=== PATIENT | male | born 1940 | race Caucasian/White ===

== ENCOUNTER 2023-05-05 09:27 | Inpatient (IN) | payer MEDICARE, OTHER ==
[~2023-05-05] VITALS: Ht 175.3 cm; Wt 95.5 kg
[2023-05-05] MEDS ORDERED: normal saline 1000ML IV soln IVB ONE (10:15)
[2023-05-05] MEDS ORDERED: pantoprazole 40mg IV 80 MG in normal saline 100ml IV soln 100 ML IV ONE (10:15)
[2023-05-05] MEDS ORDERED: pantoprazole 40 MG vial IV ONE (10:30)
[2023-05-05 10:51] LABS: BASOPHILS % (AUTO) 0.3 % (0-1); EOSINOPHILS # (AUTO) 0.1 X10'3 (0-0.9); EOSINOPHILS % (AUTO) 0.8 % (0-6); HEMATOCRIT 43.3 % (42.0-52.0); HEMOGLOBIN 14.9 g/dl (14.0-17.9); LYMPHOCYTES # (AUTO) 2.1 X10'3 (1.1-4.8); LYMPHOCYTES % (AUTO) 21.2 % (21-51); MEAN CORPUSCULAR HEMOGLOBIN 32.7 PG (27.0-31.0); MEAN CORPUSCULAR HGB CONC 34.3 g/dL (33.0-36.5); MEAN CORPUSCULAR VOLUME 95.4 FL (78-98); MEAN PLATELET VOLUME 8.7 FL (7.4-10.4); MONOCYTES # (AUTO) 0.8 X10'3 (0-0.9); MONOCYTES % (AUTO) 8.3 % (2-12); NEUTROPHILS # (AUTO) 6.8 X10'3 (1.8-7.7); NEUTROPHILS % (AUTO) 69.4 % (42-75); PLATELET COUNT 131 X10'3 (140-440); RED BLOOD COUNT 4.54 X10'6 (4.70-6.10); RED CELL DISTRIBUTION WIDTH 13.4 % (11.5-14.5); WHITE BLOOD COUNT 9.9 X10'3 (4.5-11.0)
[2023-05-05 11:12] LABS: ALANINE AMINOTRANSFERASE 29 U/L (12-78); ALBUMIN 3.3 G/DL (3.4-5.0); ALKALINE PHOSPHATASE 51 IU/L (46-116); ANION GAP 9 (8-16); ASPARTATE AMINO TRANSFERASE 28 U/L (10-37); BILIRUBIN,TOTAL 0.6 MG/DL (0.1-1.0); BLOOD UREA NITROGEN 11 MG/DL (7-18); BUN/CREATININE RATIO 12.1 (10.0-20.0); CALCIUM 8.7 MG/DL (8.5-10.1); CHLORIDE 106 MMOL/L (99-107); CREATININE 0.91 MG/DL (0.60-1.10); GLUCOSE 100 MG/DL (70-104); POTASSIUM 4.2 MMOL/L (3.5-5.1); SODIUM 141 MMOL/L (135-145); TOTAL CARBON DIOXIDE 26.5 MMOL/L (24-32); TOTAL PROTEIN 6.6 G/DL (6.4-8.2); eCRCL 64 ML/MIN; eGFR 80 ML/MIN
[2023-05-05 11:14] LABS: APTT 26 SECONDS (22-32); PROTHROMBIN TIME 10.7 SECONDS (9.0-12.0)
[2023-05-05 11:16] LABS: LIPASE 29 U/L (16-77)
[2023-05-05] MEDS ORDERED: acetaminophen 325mg tablet PO PRN ×2 (12:45)
[2023-05-05] MEDS ORDERED: HYDROcodone/acetaminophen 5mg/325mg tablet PO PRN (12:45)
[2023-05-05] MEDS ORDERED: magnesium hydroxide 30ml (MOM) UD suspension PO PRN (12:45)
[2023-05-05] MEDS ORDERED: ondansetron/PF 4mg/2ml inj IV PRN (12:45)
[2023-05-05] MEDS ORDERED: mag hydrox/Alum hydrox/simeth 30ml oral suspension PO PRN (12:45)
[2023-05-05] MEDS ORDERED: morphine 2 MG/ML inj. syringe IV PRN ×2 (12:45)
[2023-05-05] MEDS: normal saline 1000ml 1,000 ML IV SCH ×2 (13:21→20:00)
[2023-05-05 13:31] LABS: PRO BRAIN NATRIURETIC PEPTIDE 356 PG/ML (0-450)
[2023-05-05] MEDS ORDERED: LEVE10002 PO (19:08)
[2023-05-05] MEDS ORDERED: LEVO137T24 PO (19:08)
[2023-05-05] MEDS ORDERED: ESCI20TA39 PO (19:08)
[2023-05-05] MEDS ORDERED: METO-395 PO (19:08)
[2023-05-05] MEDS ORDERED: FINA5TAB11 PO (19:08)
[2023-05-05] MEDS ORDERED: ISOS30TA9 PO (19:08)
[2023-05-05] MEDS ORDERED: ATOR40TA PO (19:08)
[2023-05-05] MEDS ORDERED: APIX5TAB3 PO (19:08)
[2023-05-05 19:46] LABS: BASOPHILS % (AUTO) 0.3 % (0-1); EOSINOPHILS % (AUTO) 0.3 % (0-6); HEMATOCRIT 40.2 % (42.0-52.0); HEMOGLOBIN 13.5 g/dl (14.0-17.9); LYMPHOCYTES # (AUTO) 2.2 X10'3 (1.1-4.8); LYMPHOCYTES % (AUTO) 26.4 % (21-51); MEAN CORPUSCULAR HEMOGLOBIN 32.2 PG (27.0-31.0); MEAN CORPUSCULAR HGB CONC 33.5 g/dL (33.0-36.5); MEAN CORPUSCULAR VOLUME 96.2 FL (78-98); MEAN PLATELET VOLUME 8.8 FL (7.4-10.4); MONOCYTES # (AUTO) 0.5 X10'3 (0-0.9); MONOCYTES % (AUTO) 6.1 % (2-12); NEUTROPHILS # (AUTO) 5.5 X10'3 (1.8-7.7); NEUTROPHILS % (AUTO) 66.9 % (42-75); PLATELET COUNT 126 X10'3 (140-440); RED BLOOD COUNT 4.18 X10'6 (4.70-6.10); RED CELL DISTRIBUTION WIDTH 13.2 % (11.5-14.5); WHITE BLOOD COUNT 8.2 X10'3 (4.5-11.0)
[2023-05-05] MEDS: docusate sod 100mg capsule PO SCH (20:00)
[2023-05-06 00:14] VITALS: BP 133/70; PULSE 86; RESP 20; TEMP 98.3; O2SAT 96
[2023-05-06] MEDS ORDERED: NITR0.4T51 SL (00:46)
[2023-05-06 05:34] LABS: BASOPHILS % (AUTO) 0.2 % (0-1); MONOCYTES # (AUTO) 0.7 X10'3 (0-0.9)
[2023-05-06 05:38] LABS: EOSINOPHILS % (AUTO) 0.2 % (0-6); HEMATOCRIT 36.4 % (42.0-52.0); HEMOGLOBIN 12.3 g/dl (14.0-17.9); LYMPHOCYTES # (AUTO) 2.2 X10'3 (1.1-4.8); LYMPHOCYTES % (AUTO) 22.6 % (21-51); MEAN CORPUSCULAR HEMOGLOBIN 32.5 PG (27.0-31.0); MEAN CORPUSCULAR HGB CONC 33.9 g/dL (33.0-36.5); NEUTROPHILS # (AUTO) 6.8 X10'3 (1.8-7.7); PLATELET COUNT 128 X10'3 (140-440); RED BLOOD COUNT 3.79 X10'6 (4.70-6.10); RED CELL DISTRIBUTION WIDTH 13.7 % (11.5-14.5); WHITE BLOOD COUNT 9.7 X10'3 (4.5-11.0)
[2023-05-06 05:48] LABS: ALBUMIN 2.9 G/DL (3.4-5.0); ANION GAP 7 (8-16); BLOOD UREA NITROGEN 16 MG/DL (7-18); BUN/CREATININE RATIO 14.5 (10.0-20.0); CALCIUM 8.5 MG/DL (8.5-10.1); CHLORIDE 107 MMOL/L (99-107); GLUCOSE 115 MG/DL (70-104); POTASSIUM 4.5 MMOL/L (3.5-5.1); SODIUM 140 MMOL/L (135-145); TOTAL CARBON DIOXIDE 25.9 MMOL/L (24-32); eCRCL 53 ML/MIN; eGFR 64 ML/MIN
[2023-05-06 06:00] VITALS: BP 110/62; PULSE 75; RESP 14; TEMP 97.6; O2SAT 94
[2023-05-06] MEDS: docusate sod 100mg capsule PO SCH ×2 (08:00→20:00)
[2023-05-06 10:00] VITALS: BP 115/64; PULSE 84; RESP 16; TEMP 99.1; O2SAT 94
[2023-05-06] MEDS ORDERED: PEG 3350/Na sulf,bicarb,Cl/KCl oral sol 4 liter bottle PO ONE (10:50)
[2023-05-06 18:00] VITALS: BP 107/57; PULSE 71; RESP 16; TEMP 98.1; O2SAT 96
[2023-05-06 20:00] VITALS: BP_SYST 107; BP_SYST 109; BP_SYST 126; BP_DIAS 61; BP_DIAS 67; BP_DIAS 69; PULSE 103; PULSE 87; PULSE 95; RESP 18; O2SAT 96
[2023-05-06] MEDS: levetiracetam 250mg tablet PO SCH (20:01)
[2023-05-06 21:56] VITALS: BP 126/67; PULSE 87; RESP 18; TEMP 98.2; O2SAT 96
[2023-05-07] VITALS (15 sets, daily range): BP systolic 88–135; BP diastolic 49–69; PULSE 63–98; RESP 14–19; TEMP 97.5–98.7; O2SAT 93–97
[2023-05-07 06:46] LABS: ALBUMIN 2.8 G/DL (3.4-5.0); ANION GAP 7 (8-16); BLOOD UREA NITROGEN 14 MG/DL (7-18); BUN/CREATININE RATIO 15.7 (10.0-20.0); CALCIUM 7.8 MG/DL (8.5-10.1); CHLORIDE 109 MMOL/L (99-107); CREATININE 0.89 MG/DL (0.60-1.10); GLUCOSE 102 MG/DL (70-104); POTASSIUM 3.5 MMOL/L (3.5-5.1); SODIUM 142 MMOL/L (135-145); TOTAL CARBON DIOXIDE 25.7 MMOL/L (24-32); eCRCL 65 ML/MIN; eGFR 82 ML/MIN
[2023-05-07 06:48] LABS: BASOPHILS % (AUTO) 0.3 % (0-1); EOSINOPHILS # (AUTO) 0.1 X10'3 (0-0.9); EOSINOPHILS % (AUTO) 1.1 % (0-6); HEMATOCRIT 31.2 % (42.0-52.0); HEMOGLOBIN 10.9 g/dl (14.0-17.9); LYMPHOCYTES # (AUTO) 1.4 X10'3 (1.1-4.8); LYMPHOCYTES % (AUTO) 22.8 % (21-51); MEAN CORPUSCULAR HEMOGLOBIN 33.5 PG (27.0-31.0); MEAN CORPUSCULAR HGB CONC 35.1 g/dL (33.0-36.5); MEAN CORPUSCULAR VOLUME 95.4 FL (78-98); MEAN PLATELET VOLUME 8.7 FL (7.4-10.4); MONOCYTES # (AUTO) 0.7 X10'3 (0-0.9); MONOCYTES % (AUTO) 10.5 % (2-12); NEUTROPHILS # (AUTO) 4.1 X10'3 (1.8-7.7); NEUTROPHILS % (AUTO) 65.3 % (42-75); PLATELET COUNT 100 X10'3 (140-440); RED BLOOD COUNT 3.27 X10'6 (4.70-6.10); WHITE BLOOD COUNT 6.3 X10'3 (4.5-11.0)
[2023-05-07] MEDS: normal saline 1000ml 1,000 ML IV SCH ×3 (07:27→19:53)
[2023-05-07] MEDS: docusate sod 100mg capsule PO SCH ×2 (07:58→20:00)
[2023-05-07] MEDS ORDERED: isosorbide dinitrate 30mg tablet PO SCH (08:00)
[2023-05-07] MEDS: finasteride 5mg tablet PO SCH (08:09)
[2023-05-07] MEDS: levetiracetam 250mg tablet PO SCH ×2 (08:10→19:51)
[2023-05-07] MEDS: ESCITALOPRAM 10 mg tablet 10 MG TABLET PO SCH (08:12)
[2023-05-07] MEDS: metoprolol succinate 25mg (24-HOUR) SR. Tablet PO SCH (08:13)
[2023-05-07] MEDS: levoTHYROXINE 25mcg tablet PO SCH (08:13)
[2023-05-07] MEDS: levoTHYROXINE 125mcg tablet PO SCH (08:13)
[2023-05-07] MEDS: isosorbide dinitrate 30mg tablet PO SCH (10:48)
[2023-05-07] MEDS ORDERED: fentaNYL/PF 50MCG/1 ML 2ML syringe ONE (12:23)
[2023-05-07] MEDS ORDERED: MIDAZolam 1 MG/ML 5ML VIAL ONE (12:23)
[2023-05-07] MEDS ORDERED: ALBU18HF2 INH (15:02)
[2023-05-07] MEDS ORDERED: FLUT1BLS13 INH (15:02)
[2023-05-08] MEDS: normal saline 1000ml 1,000 ML IV SCH (05:17)
[2023-05-08 06:00] VITALS: BP 126/62; PULSE 79; RESP 20; TEMP 97.7; O2SAT 95
[2023-05-08 06:52] LABS: BASOPHILS % (AUTO) 0.2 % (0-1); EOSINOPHILS # (AUTO) 0.1 X10'3 (0-0.9); LYMPHOCYTES # (AUTO) 1.5 X10'3 (1.1-4.8); LYMPHOCYTES % (AUTO) 22.1 % (21-51); MEAN CORPUSCULAR HEMOGLOBIN 33.3 PG (27.0-31.0); MEAN CORPUSCULAR HGB CONC 34.5 g/dL (33.0-36.5); MEAN CORPUSCULAR VOLUME 96.7 FL (78-98); MEAN PLATELET VOLUME 8.9 FL (7.4-10.4); MONOCYTES # (AUTO) 0.7 X10'3 (0-0.9); MONOCYTES % (AUTO) 10.5 % (2-12); NEUTROPHILS # (AUTO) 4.6 X10'3 (1.8-7.7); NEUTROPHILS % (AUTO) 65.2 % (42-75); PLATELET COUNT 101 X10'3 (140-440); RED CELL DISTRIBUTION WIDTH 13.3 % (11.5-14.5)
[2023-05-08 06:57] LABS: ALBUMIN 2.6 G/DL (3.4-5.0); ANION GAP 6 (8-16); BLOOD UREA NITROGEN 8 MG/DL (7-18); BUN/CREATININE RATIO 10.5 (10.0-20.0); CALCIUM 7.6 MG/DL (8.5-10.1); CHLORIDE 112 MMOL/L (99-107); CREATININE 0.76 MG/DL (0.60-1.10); GLUCOSE 93 MG/DL (70-104); POTASSIUM 3.5 MMOL/L (3.5-5.1); SODIUM 143 MMOL/L (135-145); TOTAL CARBON DIOXIDE 24.9 MMOL/L (24-32); eCRCL 76 ML/MIN; eGFR > 90 ML/MIN
[2023-05-08] MEDS: levoTHYROXINE 25mcg tablet PO SCH (07:01)
[2023-05-08] MEDS: levoTHYROXINE 125mcg tablet PO SCH (07:01)
[2023-05-08] MEDS: docusate sod 100mg capsule PO SCH (07:02)
[2023-05-08] MEDS: isosorbide dinitrate 30mg tablet PO SCH (08:09)
[2023-05-08] MEDS: ESCITALOPRAM 10 mg tablet 10 MG TABLET PO SCH (08:10)
[2023-05-08] MEDS: levetiracetam 250mg tablet PO SCH (08:11)
[2023-05-08] MEDS: metoprolol succinate 25mg (24-HOUR) SR. Tablet PO SCH (08:11)
[2023-05-08] MEDS: finasteride 5mg tablet PO SCH (08:12)
== END 2023-05-08 15:45 | disposition home or self-care (01) | DRG 378 ==
LOC: ER 09:28 → ED HOLD 12:45 → ORTHO 4S 05-06 00:15
PROVIDERS: ADMIT Internal Medicine; ATTEND Internal Medicine
PROC: 0DBK8ZX Excision of Ascending Colon, Via Natural or Artificial Opening Endoscopic, Diagnostic (ICD-10-PCS; principal; 2023-05-07)
PROC: 0DBN8ZX Excision of Sigmoid Colon, Via Natural or Artificial Opening Endoscopic, Diagnostic (ICD-10-PCS; 2023-05-07)
PROC: 0DBP8ZX Excision of Rectum, Via Natural or Artificial Opening Endoscopic, Diagnostic (ICD-10-PCS; 2023-05-07)
DX: K57.91 Diverticulosis of intestine, part unspecified, without perforation or abscess with bleeding (principal); D62 Acute posthemorrhagic anemia; J44.9 Chronic obstructive pulmonary disease, unspecified; I25.10 Atherosclerotic heart disease of native coronary artery without angina pectoris; I48.0 Paroxysmal atrial fibrillation; I50.9 Heart failure, unspecified; Z86.73 Personal history of transient ischemic attack (TIA), and cerebral infarction without residual deficits; Z79.01 Long term (current) use of anticoagulants; Z80.9 Family history of malignant neoplasm, unspecified; Z87.442 Personal history of urinary calculi; Z88.8 Allergy status to other drugs, medicaments and biological substances; Z91.040 Latex allergy status
CPT/HCPCS: 36415; 45380; 71045; 74176; 80048; 80053; 83690; 83880; 84484; 85025; 85610; 85730; 86885; 86900; 86901; 87081; 93005; 96361; 96374; 99152; 99153; 99285; A4620; C1889; C9113; G0378; J2250; J3010; J7030